=== PATIENT | male | born 2000 | race African-American/Black ===

== ENCOUNTER 2020-07-30 01:02 | Emergency (ER) | payer BC ==
[2020-07-30] MEDS ORDERED: TETANUS & DIPHTHERIA TOX,ADULT 0.5 ML VIAL ONE (01:31)
[2020-07-30] MEDS ORDERED: LIDOCAINE 1% MPF 5 ML VIAL ONE (01:31)
[2020-07-30] MEDS ORDERED: DERMABOND SKIN ADHESIVE TOP ONE (01:40)
--- NOTE | 2020-07-30 01:57 | ER ---
Nurse's Notes [facility] Name: Megha Angel Age: 19 yrs Sex: Male : 2000 Arrival Date: 07/30/2020 Time: 01:04 Bed 6 Private MD: Diagnosis: Fall-Mechanical;Left Upper Eyelid Laceration Presentation: 07/30 01:04 Chief complaint: Patient states: \T\ 6pm yesterday, i was walking, fell and hit my head mg2 on the stairs. denies LOC. sustained cut in the left eyebrow, no active bleeding noted. Coronavirus screen: Client denies travel out of the [place] in the last 14 days. At this time, the client does not indicate any symptoms associated with coronavirus-19. Ebola Screen: No symptoms or risks identified at this time. Initial Sepsis Screen: Does the patient meet any 2 criteria? No. Patient's initial sepsis screen is negative. Does the patient have a suspected source of infection? No. Patient's initial sepsis screen is negative. Risk Assessment: Do you want to hurt yourself or someone else? Patient reports no desire to harm self or others. Onset of symptoms was July 29, 2020. 01:04 Method Of Arrival: [facility] [facility] [place] Acuity: CHASIDY 4 mg2 Triage Assessment: 01:09 General: Appears in no apparent distress. comfortable, Behavior is calm, cooperative. mg2 Pain:. EENT: No signs and/or symptoms were reported regarding the EENT system. Neuro: Level of Consciousness is awake, alert, obeys commands, Oriented to person, place, time, situation. Cardiovascular: Capillary refill < 3 seconds Patient's skin is warm and dry. Respiratory: Airway is patent Respiratory effort is even, unlabored, Respiratory pattern is regular, symmetrical. GI: No deficits noted. : No deficits noted. Derm: Skin is pink, warm \T\ dry. normal, Wound noted left eyebrow Wound is clean laceration approx. 1.5 cm. Musculoskeletal: Circulation, motion, and sensation intact. Capillary refill < 3 seconds. Historical: - Allergies: 01:08 No Known Allergies; mg2 - Home Meds: 01:08 None [Active]; mg2 - PMHx: 01:07 None; mg2 - PSHx: 01:07 None; mg2 - Immunization history:: Last tetanus immunization: not immunized. - Social history:: Smoking status: unknown. Screenin:10 Abuse screen: Denies threats or abuse. Denies injuries from another. Nutritional mg2 screening: No deficits noted. Tuberculosis screening: No symptoms or risk factors identified. Fall Risk Fall in past 12 months (25 points). No IV (0 pts). Assessment: 01:10 Reassessment: see triage note. mg2 Vital Signs: 01:04 BP 148 / 81; Pulse 65; Resp 18; Temp 97.5; Pulse Ox 100% on R/A; Weight 75.75 kg; mg2 Height 6 ft. 3 in. (190.50 cm); 01:04 Body Mass Index 20.87 (75.75 kg, 190.50 cm) mg2 Lolis Coma Score: 01:22 Eye Response: spontaneous(4). Verbal Response: oriented(5). Motor Response: obeys mh7 commands(6). Total: 15. 01:51 Eye Response: spontaneous(4). Verbal Response: oriented(5). Motor Response: obeys mh7 commands(6). Total: 15. ED Course: 01:04 Patient arrived in ED. mg2 01:04 Ameya Pate MD is Attending Physician. [facility] 01:07 Triage completed. mg2 01:10 Arm band placed on. mg2 01:11 Patient has correct armband on for positive identification. mg2 01:11 Patient did not have IV access during this emergency room visit. mg2 01:25 Bean Billingsley, RN is Primary Nurse. mg2 02:03 Assist provider with laceration repair on left eyebrow area that was 2.5 cm. or less mg2 using sutures. Set up tray. Performed by Ameya Pate MD Dressed with 4X4s, Xeroform, Patient tolerated well. 6 stitiches done. 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 Exp: mg2 08/05/2022. Lot #: [id number]. } Route: IM; Site: right deltoid; 01:36 Follow up: Response: No adverse reaction mg2 01:37 Drug: Lidocaine (1 %) 5 ml {Note: administered by the provider.} Volume: 5 ml; Route: mg2 Infiltration; Outcome: 01:57 Discharge ordered by mh7 02:04 Discharged to Law Enforcement mg2 02:04 Condition: stable 02:04 Discharge instructions given to patient, Instructed on discharge instructions, follow up and referral plans. wound care, Demonstrated understanding of instructions, follow-up care, wound care. 02:05 Patient left the ED. mg2 Signatures: Bean Billingsley RN RN mg2 Ameya Pate MD MD mh7 Corrections: (The following items were deleted from the chart) 02:04 01:11 No provider procedures requiring assistance completed. mg2 mg2
--- NOTE | 2020-07-30 01:58 | EDPHYS ---
Physician Documentation [facility] Name: Megha Angel Age: 19 yrs Sex: Male : 2000 Arrival Date: 07/30/2020 Time: 01:04 Bed 6 Private MD: ED Physician Ameya Pate HPI: 07/30 01:22 This 19 yrs old Male presents to ER via [employer] with complaints of Fall. Facial mh7 Laceration. 01:22 The patient or guardian reports a laceration, clean. The complaints affect the Left mh7 upper eyelid. Context of injury: The problem was sustained at [facility], resulted from a fall, down stairs, Tripped and fell while going up some stairs. Onset: The symptoms/episode began/occurred last night, at 18:00. Associated signs and symptoms: Loss of consciousness: This patient did not experience any loss of consciousness. Pertinent negatives: patient denies any alcohol consumption, biting tongue, dazed, double vision, headache, incontinence, nausea, neck pain, seizure, shortness of breath, tinnitus, vomiting, weakness in extremities, generalized weakness. Severity of symptoms: At their worst the symptoms were mild, last night, in the emergency department the symptoms are unchanged. Historical: - Allergies: 01:08 No Known Allergies; mg2 - Home Meds: 01:08 None [Active]; mg2 - PMHx: 01:07 None; mg2 - PSHx: 01:07 None; mg2 - Immunization history:: Last tetanus immunization: not immunized. - Social history:: Smoking status: unknown. ROS: 01:22 Constitutional: Negative for fever, chills, and weight loss, ENT: Negative for injury, mh7 pain, and discharge, Neck: Negative for injury, pain, and swelling, Cardiovascular: Negative for chest pain, palpitations, and edema, Respiratory: Negative for shortness of breath, cough, wheezing, and pleuritic chest pain, Abdomen/GI: Negative for abdominal pain, nausea, vomiting, diarrhea, and constipation, Back: Negative for injury and pain, : Negative for injury, bleeding, discharge, and swelling, MS/Extremity: Negative for injury and deformity, Neuro: Negative for headache, weakness, numbness, tingling, and seizure, Psych: Negative for depression, anxiety, suicide ideation, homicidal ideation, and hallucinations, Allergy/Immunology: Negative for hives, rash, and allergies, Endocrine: Negative for neck swelling, polydipsia, polyuria, polyphagia, and marked weight changes, Hematologic/Lymphatic: Negative for swollen nodes, abnormal bleeding, and unusual bruising. Exam: 01:22 Constitutional: This is a well developed, well nourished patient who is awake, alert, mh7 and in no acute distress. ENT: Nares patent. No nasal discharge, no septal abnormalities noted. Tympanic membranes are normal and external auditory canals are clear. Oropharynx with no redness, swelling, or masses, exudates, or evidence of obstruction, uvula midline. Mucous membranes moist. Neck: Trachea midline, no thyromegaly or masses palpated, and no cervical lymphadenopathy. Supple, full range of motion without nuchal rigidity, or vertebral point tenderness. No Meningismus. Chest/axilla: Normal chest wall appearance and motion. Nontender with no deformity. No lesions are appreciated. Cardiovascular: Regular rate and rhythm with a normal S1 and S2. No gallops, murmurs, or rubs. Normal PMI, no JVD. No pulse deficits. Respiratory: Lungs have equal breath sounds bilaterally, clear to auscultation and percussion. No rales, rhonchi or wheezes noted. No increased work of breathing, no retractions or nasal flaring. Abdomen/GI: Soft, non-tender, with normal bowel sounds. No distension or tympany. No guarding or rebound. No evidence of tenderness throughout. Back: No spinal tenderness. No costovertebral tenderness. Full range of motion. MS/ Extremity: Pulses equal, no cyanosis. Neurovascular intact. Full, normal range of motion. Neuro: Awake and alert, GCS 15, oriented to person, place, time, and situation. Cranial nerves II-XII grossly intact. Motor strength 5/5 in all extremities. Sensory grossly intact. Cerebellar exam normal. Normal gait. Psych: Awake, alert, with orientation to person, place and time. Behavior, mood, and affect are within normal limits. 01:51 Head/face: Exam is negative for abrasion(s), flaherty signs, contusion, deformity, mh7 ecchymosis, erythema, hematoma, raccoon eyes, rash, Noted is a laceration(s), that is superficial, that is linear, 3 cm(s), of the left upper eyelid. 01:51 Eyes: Periorbital structures: appear normal, Pupils: equal, round, and reactive to light and accomodation, Extraocular movements: intact throughout, Conjunctiva: normal, Corneas: are normal, Sclera: no appreciated abnormality, Lids and lashes: laceration, that is superficial, of the left upper eyelid, 3 cm, funduscopic exam reveals no obvious abnormalities, Visual lubin: are intact, Nystagmus: is not appreciated. Vital Signs: 01:04 BP 148 / 81; Pulse 65; Resp 18; Temp 97.5; Pulse Ox 100% on R/A; Weight 75.75 kg; mg2 Height 6 ft. 3 in. (190.50 cm); 01:04 Body Mass Index 20.87 (75.75 kg, 190.50 cm) mg2 Lolis Coma Score: 01:22 Eye Response: spontaneous(4). Verbal Response: oriented(5). Motor Response: obeys mh7 commands(6). Total: 15. 01:51 Eye Response: spontaneous(4). Verbal Response: oriented(5). Motor Response: obeys mh7 commands(6). Total: 15. Laceration: 01:51 Wound Repair of 3cm ( 1.2in ) subcutaneous laceration to left upper eyelid. Linear mh7 shaped.. Distal neuro/vascular/tendon intact. Anesthesia: Local anesthetic administered with 2 mls of 1% lidocaine. Wound prep: Extensive cleansing with betadine by nurse, Wound irrigation with saline by nurse, Wound explored extensively, Copious irrigation. Subcutaneous tissue closed with 2 6-0 Vicryl using simple sutures and sterile technique. Skin closed with 6 6-0 Prolene using simple sutures and sterile technique. Dressed with Bacitracin, non-adherent dressing. Patient tolerated well. MDM: 01:51 Differential diagnosis: Contusion of face, Hematoma on face, Laceration of face, mh7 eyelid. Data reviewed: vital signs, nurses notes. Data interpreted: Pulse oximetry: on room air is 100 %. Interpretation: normal. Counseling: I had a detailed discussion with the patient and/or guardian regarding: the historical points, exam findings, and any diagnostic results supporting the discharge/admit diagnosis, the presence of at least one elevated blood pressure reading (>120/80) during this emergency department visit, the need for outpatient follow up, to return to the emergency department if symptoms worsen or persist or if there are any questions or concerns that arise at home. Response to treatment: the patient's symptoms have markedly improved after treatment. 01:57 Patient medically screened. 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 Exp: mg2 08/05/2022. Lot #: [id number]. } Route: IM; Site: right deltoid; 01:36 Follow up: Response: No adverse reaction [facility] [place] Drug: Lidocaine (1 %) 5 ml {Note: administered by the provider.} Volume: 5 ml; Route: mg2 Infiltration; Disposition: 07/30/20 01:57 Discharged to Home. Impression: Fall-Mechanical, Left Upper Eyelid Laceration. - Condition is Stable. - Discharge Instructions: Facial Laceration, [id number], Sutured Wound Care, [id number]. - Medication Reconciliation Form, Thank You Letter, Antibiotic Education, Prescription Opioid Use form. - Follow up: Private Physician; When: 48 Hours; Reason: Wound Recheck, Worsening of condition, Recheck today's complaints, Continuance of care, Re-evaluation by your physician. Follow up: Emergency Department; When: 48 Hours; Reason: Wound Recheck, Worsening of condition. - Problem is new. - Symptoms have improved. Signatures: Bean Billingsley RN RN [facility] [place] Ameya Pate MD MD 7 Corrections: (The following items were deleted from the chart) 01:36 01:25 Dermabond [place]. [facility] [place]2 02:05 01:57 07/30/2020 01:57 Discharged to Home. Impression: Fall-Mechanical; Left Upper mg2 Eyelid Laceration. Condition is Stable. Forms are Medication Reconciliation Form, Thank You Letter, Antibiotic Education, Prescription Opioid Use. Follow up: Private Physician; When: 48 Hours; Reason: Wound Recheck, Worsening of condition, Recheck today's complaints, Continuance of care, Re-evaluation by your physician. Follow up: Emergency Department; When: 48 Hours; Reason: Wound Recheck, Worsening of condition. Problem is new. Symptoms have improved. mh7
[2020-07-30 02:09] VITALS: BP 148/81; TEMP 97.5; O2SAT 100
== END 2020-07-30 02:05 | disposition home or self-care (01) ==
LOC: ER 01:02
PROC: 08QPXZZ Repair Left Upper Eyelid, External Approach (ICD-10-PCS; principal; 2020-07-30)
DX: S01.112A Laceration without foreign body of left eyelid and periocular area, initial encounter (principal); W10.9XXA Fall (on) (from) unspecified stairs and steps, initial encounter; Y93.01 Activity, walking, marching and hiking; Y92.149 Unspecified place in prison as the place of occurrence of the external cause; Z23 Encounter for immunization
CPT/HCPCS: 90471; 90714; 99283